=== PATIENT | male | born 1975 | race Caucasian/White ===

== ENCOUNTER 2021-07-20 18:41 | Emergency (ER) | payer OTHER ==
[~2021-07-20] VITALS: Ht 177.8 cm; Wt 82.0 kg
[2021-07-20] MEDS ORDERED: KETOROLAC 60MG/2ML VIAL IM STA (22:27)
[2021-07-20] MEDS ORDERED: ACETAMINOPHEN WITH CODEINE 300/30MG TABLET PO STA (22:27)
[2021-07-21] MEDS ORDERED: HYDROCODONE/ACETAMINOPHEN 5/325MG TABLET PO STA (00:15)
[2021-07-21] MEDS ORDERED: NAPR-681 PO (01:12)
[2021-07-21] MEDS ORDERED: HYDR-4001 PO (01:12)
[2021-07-21 01:30] VITALS: BP 137/71
== END 2021-07-21 01:55 | disposition home or self-care (01) ==
LOC: ER 18:41
DX: S39.012A Strain of muscle, fascia and tendon of lower back, initial encounter (principal); X50.9XXA Other and unspecified overexertion or strenuous movements or postures, initial encounter; Y93.89 Activity, other specified; Y92.012 Bathroom of single-family (private) house as the place of occurrence of the external cause
CPT/HCPCS: 96372; 99283; J1885